=== PATIENT | male | born 1935 | race African-American/Black ===

== ENCOUNTER 2019-01-28 18:16 | Emergency (ER) | payer MEDICARE, OTHER ==
[~2019-01-28 18:16] MED LIST: TENECTEPLASE INJ 50 MG KIT IV ONE
--- NOTE | 2019-01-28 19:04 | EKG REPORT ---
SEVERITY:- ABNORMAL ECG - SINUS RHYTHM ABNORMAL T, CONSIDER ISCHEMIA, DIFFUSE LEADS ST ELEVATION, CONSIDER ANTERIOR INJURY BORDERLINE PROLONGED QT INTERVAL : Confirmed by: Savita Pasrons MD 28-Jan-2019 19:03:42
[2019-01-28 19:11] LABS: ABSOLUTE EOSINOPHILS # (AUTO) 0.1 10^3/uL (0.0-0.6); ABSOLUTE LYMPHOCYTES (AUTO) 1.3 10^3/uL (0.5-4.7); ABSOLUTE MONOCYTES (AUTO) 0.4 10^3/uL (0.1-1.4); ABSOLUTE NEUT (AUTO) 2.2 10^3/uL (1.7-8.2); BASOPHILS % (AUTO) 0.5 % (0-2); HEMATOCRIT 36.3 % (37.9-51.0); HEMOGLOBIN 11.6 g/dL (13.5-17.0); LYMPHOCYTES % (AUTO) 32.3 % (13-45); MEAN CORPUSCULAR HEMOGLOBIN 29.2 pg (27.0-33.4); MEAN CORPUSCULAR VOLUME 91 fl (80-97); MONOCYTES % (AUTO) 9.4 % (3-13); PLATELET COUNT 124 10^3/uL (150-450); RED BLOOD COUNT 3.98 10^6/uL (4.35-5.55); RED CELL DISTRIBUTION WIDTH 15.2 % (11.5-14.0); SEGMENTED NEUTROPHILS % (AUTO) 54.8 % (42-78); TOTAL CELLS COUNTED % (AUTO) 100 %; WHITE BLOOD COUNT 3.9 10^3/uL (4.0-10.5)
[2019-01-28 19:30] LABS: ALANINE AMINOTRANSFERASE 28 U/L (21-72); ALBUMIN 3.3 g/dL (3.5-5.0); ALKALINE PHOSPHATASE 101 U/L (38-126); ANION GAP 6 (5-19); ASPARTATE AMINO TRANSFERASE 31 U/L (17-59); BILIRUBIN,DIRECT 0.3 mg/dL (0.0-0.4); BILIRUBIN,TOTAL 0.6 mg/dL (0.2-1.3); BLOOD UREA NITROGEN 19 mg/dL (7-20); CALCIUM 8.5 mg/dL (8.4-10.2); CARBON DIOXIDE 31 mmol/L (22-30); CHLORIDE 104 mmol/L (98-107); CREATINE KINASE 83 U/L (55-170); GLUCOSE 91 mg/dL (75-110); POTASSIUM 4.2 mmol/L (3.6-5.0); SODIUM 140.8 mmol/L (137-145); TOTAL PROTEIN 6.1 g/dL (6.3-8.2)
[2019-01-28 19:41] LABS: CREATINE KINASE MB 0.95 ng/mL (<4.55)
[2019-01-28 19:45] LABS: TROPONIN I < 0.012 ng/mL
[2019-01-28 20:10] LABS: APPEARANCE,URINE CLEAR; BILIRUBIN,URINE NEGATIVE (NEGATIVE); COLOR,URINE YELLOW; GLUCOSE, URINE NEGATIVE (NEGATIVE); KETONES,URINE NEGATIVE (NEGATIVE); LEUKOCYTE ESTERASE,URINE NEGATIVE (NEGATIVE); NITRITE,URINE NEGATIVE (NEGATIVE); PROTEIN,URINE NEGATIVE (NEGATIVE); URINE SPECIFIC GRAVITY 1.015
--- NOTE | 2019-01-28 20:14 | ER Document Report ---
ED General - General Chief Complaint: Dizziness Stated Complaint: DIZZY Time Seen by Provider: 01/28/19 20:00 Primary Care Provider: THIERRY BUCHANAN MD [Primary Care Provider] - Follow up as needed TRAVEL OUTSIDE OF THE [place] IN LAST 30 DAYS: No - HPI Notes: Patient is a 83-year-old male that presents to the emergency department for chief complaint of lightheadedness. Patient states this morning he had gotten up from lying down and was getting ready for the day when he began to feel lightheaded. He states he laid back down in bed and his took his blood pressure. She reported it was elevated which is why he came to the emergency room. He denies any known history of hypertension. He states that he has felt lightheaded intermittently over the last few days with position changes. He denies syncope, palpitations, chest pain and shortness of breath. Patient also reports an aching in his left shoulder that radiates down to his left elbow for the last 2 weeks. He has seen his primary care doctor for this and was reportedly started on duloxetine. He states his PCP thought he had a radiculopathy. He reports the pain is intermittent and does not seem to have any aggravating or relieving factors including movement and he has no history of trauma. Patient does see cardiology routinely and has a history of CABG x4. He is on Plavix and aspirin which he takes daily. Past Medical History: CAD, hyperlipidemia Past Surgical History: CABG x4 Social History: Lives at home. Denies tobacco and alcohol use Family History: Reviewed and noncontributory for presenting illness Allergies: Reviewed, see documented allergy list. REVIEW OF SYSTEMS: CONSTITUTIONAL : No fever No chills No diaphoresis No recent illness EENT: No vision changes No congestion No sore throat CARDIOVASCULAR: No chest pain No palpitations RESPIRATORY: No shortness of breath No cough No difficulty breathing GASTROINTESTINAL: No abdominal pain No nausea No vomiting No diarrhea GENITOURINARY: No dysuria No hematuria No difficulty urinating MUSCULOSKELETAL: No back pain No leg pain arm pain SKIN: No rashes No lesions LYMPHATIC: No swollen, enlarged glands. NEUROLOGICAL: lightheadedness No headache No weakness No paresthesias PSYCHIATRIC: No anxiety No depression PHYSICAL EXAMINATION: Vital signs reviewed, nursing noted reviewed. GENERAL: Well-appearing, well-nourished and in no acute distress. HEAD: Atraumatic, normocephalic. EYES: Eyes appear normal, extraocular movements intact, sclera anicteric, conjunctiva are normal. ENT: nares patent, oropharynx clear without exudates. Moist mucous membranes. NECK: Normal range of motion, supple without lymphadenopathy LUNGS: Breath sounds clear to auscultation bilaterally and equal. No wheezes rales or rhonchi. HEART: Regular rate and rhythm without murmurs. +2/4 bilateral radial pulses ABDOMEN: Soft, nontender, normoactive bowel sounds. No rebound, guarding, or rigidity. No masses appreciated. EXTREMITIES: Nontender, good range of motion, no pitting or edema. NEUROLOGICAL: No focal neurological deficits. Moves all extremities spontaneously Motor and sensory grossly intact on exam. PSYCH: Normal mood, normal affect. SKIN: Warm, Dry, normal turgor, no rashes or lesions noted on exposed skin - Related Data Allergies/Adverse Reactions: No Known Allergies Allergy (Verified 01/28/19 18:17) Past Medical History - Social History Smoking Status: Never Smoker Family History: Reviewed & Not Pertinent Patient has suicidal ideation: No Patient has homicidal ideation: No - Past Medical History Cardiac Medical History: Reports: Hx Coronary Artery Disease, Hx Heart Attack, Hx Hypercholesterolemia Pulmonary Medical History: Denies: Hx COPD, Hx Tuberculosis Renal/ Medical History: Denies: Hx Peritoneal Dialysis Past Surgical History: Reports: Hx Cardiac Catheterization, Hx Cardiac Surgery - x4 bypass - Immunizations Hx Diphtheria, Pertussis, Tetanus Vaccination: Yes Hx Pneumococcal Vaccination: 07/18/08 Physical Exam - Vital signs Vitals: Temp Pulse Resp BP Pulse Ox 98.1 F 76 22 H 115/66 99 01/28/19 18:19 01/28/19 18:19 01/28/19 18:19 01/28/19 18:19 01/28/19 18:19 Course - Re-evaluation Re-evalutation: 01/28/19 20:12 Vitals reviewed. Nursing notes reviewed. Patient is hypertensive at presentation. He is well-appearing and in no acute distress. Currently he is not having any pains in his left upper extremity. He denies ever having any chest pain dyspnea or diaphoresis but does have extensive risk factors and known CAD. Patient's initial troponin is negative. The remainder of his work-up is unremarkable. He has no focal neurologic deficits and currently is not feeling lightheaded. His symptoms of lightheadedness are with position changes. 01/28/19 20:37 Patient had initial EKG performed in triage which was read as unchanged from previous by another provider. Upon my evaluation of the EKG it appears he has ST elevation in V1 and V2. Patient has had ST elevation previously in V1. His T wave inversions are not new. He has no new ST depressions. Repeat EKG again shows ST elevation V1 V2. I discussed his EKGs with Dr. Parsons who agrees patient needs to be transferred for heart catheterization. He does not recommend giving lytics with patient's age and elevated blood pressure therefore they will be held. Patient has not had any chest pain and is currently asymptomatic. His initial troponin is negative. Patient given aspirin, Plavix and started on heparin. He will be transferred to [facility] for interventional cardiology. Patient and in agreement with this plan of care. Awaiting call back from [facility] interventional cardiology. Laboratory 01/28/19 01/28/19 01/28/19 18:54 18:54 18:54 WBC 3.9 L RBC 3.98 L Hgb 11.6 L Hct 36.3 L MCV 91 MCH 29.2 MCHC 32.0 RDW 15.2 H Plt Count 124 L Seg Neutrophils % 54.8 Lymphocytes % 32.3 Monocytes % 9.4 Eosinophils % 3.0 Basophils % 0.5 Absolute Neutrophils 2.2 Absolute Lymphocytes 1.3 Absolute Monocytes 0.4 Absolute Eosinophils 0.1 Absolute Basophils 0.0 Sodium 140.8 Potassium 4.2 Chloride 104 Carbon Dioxide 31 H Anion Gap 6 BUN 19 Creatinine 1.39 H Est GFR ( Amer) 59 L Est GFR (Non-Af Amer) 49 L Glucose 91 Calcium 8.5 Total Bilirubin 0.6 Direct Bilirubin 0.3 Neonat Total Bilirubin Not Reportable Neonat Direct Bilirubin Not Reportable Neonat Indirect Bili Not Reportable AST 31 ALT 28 Alkaline Phosphatase 101 Creatine Kinase 83 CK-MB (CK-2) 0.95 Troponin I < 0.012 Total Protein 6.1 L Albumin 3.3 L Urine Color Urine Appearance Urine pH Ur Specific [place] Urine Protein Urine Glucose (UA) Urine Ketones Urine Blood Urine Nitrite Urine Bilirubin Urine Urobilinogen Ur Leukocyte Esterase Urine WBC (Auto) Urine RBC (Auto) U Hyaline Cast (Auto) Squamous Epi Cells Auto Urine Mucus (Auto) Urine Ascorbic Acid 01/28/19 19:52 WBC RBC Hgb Hct MCV MCH MCHC RDW Plt Count Seg Neutrophils % Lymphocytes % Monocytes % Eosinophils % Basophils % Absolute Neutrophils Absolute Lymphocytes Absolute Monocytes Absolute Eosinophils Absolute Basophils Sodium Potassium Chloride Carbon Dioxide Anion Gap BUN Creatinine Est GFR ( Amer) Est GFR (Non-Af Amer) Glucose Calcium Total Bilirubin Direct Bilirubin Neonat Total Bilirubin Neonat Direct Bilirubin Neonat Indirect Bili AST ALT Alkaline Phosphatase Creatine Kinase CK-MB (CK-2) Troponin I Total Protein Albumin Urine Color YELLOW Urine Appearance CLEAR Urine pH 5.0 Ur Specific [place] 1.015 Urine Protein NEGATIVE Urine Glucose (UA) NEGATIVE Urine Ketones NEGATIVE Urine Blood NEGATIVE Urine Nitrite NEGATIVE Urine Bilirubin NEGATIVE Urine Urobilinogen 4.0 H Ur Leukocyte Esterase NEGATIVE Urine WBC (Auto) 1 Urine RBC (Auto) 0 U Hyaline Cast (Auto) 1 Squamous Epi Cells Auto 2 Urine Mucus (Auto) RARE Urine Ascorbic Acid NEGATIVE 01/28/19 21:07 Patient's care was discussed with Dr. Cabrera at [facility]. He reviewed the EKGs and agrees with transfer for heart catheterization. He request patient receive lytics. Patient's blood pressure has come down since initially evaluated. Dr. Cabrera is aware of the thrombocytopenia. Patient has no active signs of bleeding or other contraindications and lytics will be given. Patient and family were counseled on the risks of lytics including life-threatening bleeding and are in agreement with all plan of care currently. Patient is stable for transfer. - Vital Signs Vital signs: Temp Pulse Resp BP Pulse Ox 98.1 F 76 22 H 172/86 H 98 01/28/19 18:19 01/28/19 18:19 01/28/19 18:19 01/28/19 19:01 01/28/19 19:01 - Laboratory Result Diagrams: 01/28/19 18:54 01/28/19 18:54 Laboratory results interpreted by me: 01/28/19 01/28/19 01/28/19 18:54 18:54 19:52 WBC 3.9 L RBC 3.98 L Hgb 11.6 L Hct 36.3 L RDW 15.2 H Plt Count 124 L Carbon Dioxide 31 H Creatinine 1.39 H Est GFR ( Amer) 59 L Est GFR (Non-Af Amer) 49 L Total Protein 6.1 L Albumin 3.3 L Urine Urobilinogen 4.0 H - Diagnostic Test Radiology reviewed: Image reviewed - EKG Interpretation by Me Additional EKG results interpreted by me: 01/28/19 20:41 Interpreted by myself 190: Normal sinus rhythm, rate 74, normal axis, no ectopy, borderline QT prolongation, ST elevation V1 V2 with no reciprocal ST depression, diffuse T wave abnormalities. STEMI Interpreted by myself 2012: Normal sinus rhythm, rate 71, normal axis, no ectopy, ST elevation V1 V2, acute STEMI Critical Care Note - Critical Care Note Total time excluding time spent on procedures (mins): 36 Comments: Critical care time 36 exclusive from separate billable procedures for a patient requiring complex medical decision making, and high potential for clinical deterioration. Time spent obtaining history from patient or surrogate, discussions with consultants, development of treatment plan with patient or surrogate, evaluation of patient's response to treatment, examination of patient, ordering and performing treatments and interventions, ordering and revi ew of laboratory studies, re-evaluation of patient's condition, ordering and review of radiographic studies and review of old charts Discharge - Discharge Clinical Impression: STEMI (ST elevation myocardial infarction) Qualifiers: Involved coronary artery: other coronary artery Qualified Code(s): I21.29 - ST elevation (STEMI) myocardial infarction involving other sites Condition: Stable Disposition: [facility] Referrals: THIERRY BUCHANAN MD [Primary Care Provider] - Follow up as needed
[2019-01-28] MEDS ORDERED: HEPARIN SOD (PORCINE) 1,000 UNIT/ML 10 ML VIAL IV ONE (20:33)
[2019-01-28] MEDS ORDERED: HEPARIN SODIUM,PORCINE/D5W 25,000 UNIT/250 ML RTUINJ IV PRN (20:33)
[2019-01-28] MEDS ORDERED: ASPIRIN 81 MG TABLET, CHEWABLE PO ONE (20:33)
[2019-01-28] MEDS ORDERED: CLOPIDOGREL BISULFATE 300 MG TABLET PO ONE (20:34)
[2019-01-28 20:44] LABS: INTERNATIONAL RATION (INR) 1.11; PROTHROMBIN TIME 14.4 SEC (11.4-15.4)
[2019-01-28 20:45] LABS: PARTIAL THROMBOPLASTIN TIME 29.6 SEC (23.5-35.8)
[2019-01-28] MEDS ORDERED: HYDRALAZINE HCL INJ/PF 20 MG/1 ML SDV IV ONE (20:50)
--- NOTE | 2019-01-28 20:54 | EKG REPORT ---
SEVERITY:- ABNORMAL ECG - SINUS RHYTHM MULTIPLE ATRIAL PREMATURE COMPLEXES ABNORMAL T, CONSIDER ISCHEMIA, DIFFUSE LEADS ST ELEVATION, CONSIDER ANTERIOR INJURY : Confirmed by: Savita Parsons MD 28-Jan-2019 20:53:33
[2019-01-28 21:08] VITALS: BP 149/82
[2019-01-28] MEDS ORDERED: TENECTEPLASE INJ 50 MG KIT IV ONE (21:30)
--- NOTE | 2019-01-28 21:32 | RADIOLOGY REPORT (SQ) ---
EXAM DESCRIPTION: XR CHEST 1 VIEW COMPLETED DATE/TME: 01/28/2019 20:39 CLINICAL HISTORY: lightheaded COMPARISON: October 08, 2014 FINDINGS: Cardiac silhouette is within normal limits. Patient is status post median sternotomy. Aorta is tortuous. EKG leads project over the chest. There is no focal parenchymal or pleural disease. There is no acute osseous process visualized. IMPRESSION: No evidence of acute cardiopulmonary disease.
[2019-01-28] MEDS ORDERED: HEPARIN SOD (PORCINE) 1,000 UNIT/ML 10 ML VIAL IV PRN (23:33)
== END 2019-01-28 21:25 | disposition short-term general hospital (02) ==
LOC: ER 18:16
DX: I21.3 ST elevation (STEMI) myocardial infarction of unspecified site (principal); I10 Essential (primary) hypertension; D69.6 Thrombocytopenia, unspecified; I25.10 Atherosclerotic heart disease of native coronary artery without angina pectoris; R42 Dizziness and giddiness; M25.512 Pain in left shoulder; I25.2 Old myocardial infarction; Z95.1 Presence of aortocoronary bypass graft; Z79.02 Long term (current) use of antithrombotics/antiplatelets; Z79.82 Long term (current) use of aspirin
CPT/HCPCS: 93005; 96376; 99291; 96375; 96365; 36415; 82553; 82550; 85025; 85610; 85730; 80053; 81001; 84484; 71045; 93010; J3101; A9270 ×2; J1644 ×2; J3490

== ENCOUNTER → 2019-05-30 | Outpatient (CLI) | payer MEDICARE, OTHER | LOC: OD 12:25 | PROVIDERS: ATTEND Family Medicine | DX: D51.8 Other vitamin B12 deficiency anemias (principal); E03.4 Atrophy of thyroid (acquired) | CPT/HCPCS: 36415; 82607; 84443 ==

== ENCOUNTER → 2020-01-22 | Outpatient (CLI) | payer MEDICARE, OTHER ==
[2020-01-22 11:13] LABS: ALBUMIN 3.3 g/dL (3.5-5.0); ALKALINE PHOSPHATASE 101 U/L (38-126); ASPARTATE AMINO TRANSFERASE 33 U/L (17-59); BILIRUBIN,TOTAL 0.5 mg/dL (0.2-1.3); BLOOD UREA NITROGEN 23 mg/dL (7-20); CALCIUM 8.8 mg/dL (8.4-10.2); CHOLESTEROL 111.71 mg/dL (0-200); GLUCOSE 95 mg/dL (75-110); POTASSIUM 4.1 mmol/L (3.6-5.0); TOTAL PROTEIN 6.3 g/dL (6.3-8.2); TRIGLYCERIDES 50 mg/dL (<150)
[2020-01-22 11:18] LABS: CARBON DIOXIDE 31 mmol/L (22-30); CHLORIDE 108 mmol/L (98-107)
[2020-01-22 11:25] LABS: DIRECT LDL 50 mg/dL (<100)
[2020-01-22 11:47] LABS: ANION GAP 2 (5-19)
== END ==
LOC: OD 10:07
PROVIDERS: ATTEND Family Medicine
DX: I10 Essential (primary) hypertension (principal); E78.2 Mixed hyperlipidemia
CPT/HCPCS: 36415; 80053; 80061